=== PATIENT | female | born 1955 ===

== ENCOUNTER 2018-12-20 16:27 | Emergency (ER) | payer BC ==
--- NOTE | 2018-12-20 18:01 | UC ---
Skin Complaint HPI - HPI Summary HPI Summary: Patient noticed tick on her neck today while gardening, removed most of it. area is red - History of Current Complaint Chief Complaint: UCSkin Time Seen by Provider: 12/20/18 17:45 Stated Complaint: TICK BITE Hx Obtained From: Patient ?: No Onset/Duration: Sudden Onset, Lasting Hours Skin Exposure Onset/Duration: Hours Ago Timing: Constant Onset Severity: Mild Current Severity: Mild Pain Intensity: 1 Location: Discrete Character: Swelling, Pruritus, Raised Aggravating Factor(s): Nothing Alleviating Factor(s): Nothing - Allergy/Home Medications Allergies/Adverse Reactions: Allergies Allergy/AdvReac Type Severity Reaction Status Date / Time codeine Allergy Unknown Verified 12/20/18 16:48 Reaction Details Home Medications: Home Medications Sertraline* [Zoloft*] 200 mg PO DAILY 12/20/18 [History Confirmed 12/20/18] PMH/Surg Hx/FS Hx/Imm Hx Previously Healthy: Yes - Surgical History Surgical History: None - Family History Known Family History: Positive: Cardiac Disease, Hypertension - Social History Alcohol Use: Daily Substance Use Type: Marijuana Substance Use Comment - Amount & Last Used: couple times week Smoking Status (MU): Former Smoker When Did the Patient Quit Smoking/Using Tobacco: 35 years ago Review of Systems All Other Systems Reviewed And Are Negative: Yes Constitutional: Positive: Negative Skin: Positive: Other - tick bite Eyes: Positive: Negative ENT: Positive: Negative Respiratory: Positive: Negative Cardiovascular: Positive: Negative Gastrointestinal: Positive: Negative Genitourinary: Positive: Negative Motor: Positive: Negative Neurovascular: Positive: Negative Musculoskeletal: Positive: Negative Neurological: Positive: Negative Psychological: Positive: Negative Is Patient Immunocompromised?: No Physical Exam Triage Information Reviewed: Yes Appearance: Well-Appearing, Well-Nourished, Pain Distress Vital Signs: Initial Vital Signs Temp 98.3 F 12/20/18 16:43 Pulse 85 12/20/18 16:43 Resp 16 12/20/18 16:43 BP 122/69 12/20/18 16:43 Pulse Ox 97 12/20/18 16:43 Vital Signs Reviewed: Yes Eye Exam: Normal ENT Exam: Normal Dental Exam: Normal Neck exam: Normal Respiratory Exam: Normal Cardiovascular Exam: Normal Abdominal Exam: Normal Bowel Sounds: Positive: Present Musculoskeletal Exam: Normal Neurological Exam: Normal Psychological Exam: Normal Skin: Positive: Other - remainder of tick in neck, mild erythema peribite Course/Dx - Course Course Of Treatment: hx obtained, exam performed ,meds reviewed, removed the rest of the tick, no further treatment - Differential Diagnoses - Skin Complaint Differential Diagnoses: Tick Born Illness, Urticaria - Diagnoses Provider Diagnosis: Tick bite Discharge - Sign-Out/Discharge Documenting (check all that apply): Patient Departure All imaging exams completed and their final reports reviewed: No Studies - Discharge Plan Condition: Stable Disposition: HOME Patient Education Materials: Tick Bite (ED) Referrals: No Primary Care Phys,NOPCP [Primary Care Provider] - Additional Instructions: 1. wash with soap and water 2. You can use benadryl or calamine lotion for itching. 3. Follow up as needed. - Billing Disposition and Condition Condition: STABLE Disposition: Home
== END 2018-12-20 18:00 | disposition home or self-care (01) ==
LOC: UCEAST 16:27
DX: S10.96XA Insect bite of unspecified part of neck, initial encounter (principal); I11.9 Hypertensive heart disease without heart failure; Z87.891 Personal history of nicotine dependence; W57.XXXA Bitten or stung by nonvenomous insect and other nonvenomous arthropods, initial encounter; Z88.8 Allergy status to other drugs, medicaments and biological substances
CPT/HCPCS: 99201; G0463